=== PATIENT | male | born 2000 | race Caucasian/White ===

== ENCOUNTER 2019-04-15 01:51 | Emergency (ER) | payer BC ==
[~2019-04-15] VITALS: Ht 182.9 cm; Wt 85.6 kg
[~2019-04-15 01:51] MED LIST: ALBU8.5H8; FLUT100D; IBUP-1542 PO
[2019-04-15 01:54] VITALS: Ht 182.9 cm; Wt 85.6 kg
[2019-04-15] MEDS ORDERED: ONDA4TAB14 PO (04:11)
--- NOTE | 2019-04-15 04:18 | ERD ---
ER Documentation Chief Complaint Chief Complaint abdominal pain/vomiting/diarrhea x 2 days HPI This is a 18-year-old male with history of asthma presents to the ED complaining of diffuse abdominal cramping, nausea, vomiting, diarrhea x2 days. Patient states symptoms started after eating a burger. He reports over 15 episodes of loose stools per day, nonbloody. He also reports the episodes of nonbilious, nonbloody emesis. He has been able to tolerate Pedialyte at home. He denies any fevers, urinary symptoms, shortness of breath, chest pain. He denies any recent antibiotics or recent travel. No other sick contacts. ROS All systems reviewed and are negative except as per history of present illness. Medications Home Meds Active Scripts Ondansetron (Ondansetron Odt) 4 Mg Tab.rapdis, 4 MG PO Q6H PRN for NAUSEA AND/OR VOMITING, #10 TAB Prov:STEPHON GEORGE PA-C 04/15/19 Ibuprofen* (Motrin*) 600 Mg Tab, 600 MG PO Q6, #30 TAB Prov:RIZWAN COOK PA-C 09/16/16 Reported Medications Fluticasone Propionate (Flovent Diskus) 100 Mcg Disk.w.dev 03/09/13 Albuterol Sulfate* (Proair HFA*) 8.5 Gm Hfa.aer.ad 04/11/10 Allergies Allergies: Coded Allergies: No Known Allergies (Verified Allergy, Mild, 09/16/16) PMhx/Soc Medical and Surgical Hx: pt denies Medical Hx, pt denies Surgical Hx History of Surgery: No Anesthesia Reaction: No Hx Neurological Disorder: No Hx Respiratory Disorders: Yes (asthma) Hx Cardiac Disorders: No Hx Psychiatric Problems: No Hx Miscellaneous Medical Probl: No Hx Alcohol Use: No Hx Substance Use: No Hx Tobacco Use: No Smoking Status: Never smoker Physical Exam Vitals Vital Signs Date Temp Pulse Resp B/P (MAP) Pulse Ox O2 O2 Flow FiO2 Time Delivery Rate 04/15/19 97.3 79 18 131/86 98 01:54 (101) Physical Exam Const: No acute distress Head: Atraumatic Eyes: Normal Conjunctiva ENT: Normal External Ears, Nose and Mouth. Neck: Full range of motion. No meningismus. Resp: Clear to auscultation bilaterally Cardio: Regular rate and rhythm, no murmurs Abd: Soft, non tender, non distended. + Hyperactive bowel sounds. Negative McBurney's. Negative Alexander's. Skin: No petechiae or rashes Back: No midline or flank tenderness Ext: No cyanosis, or edema Neur: Awake and alert Psych: Normal Mood and Affect Results 24 hrs Laboratory Tests Test 04/15/19 03:52 White Blood Count Pending Red Blood Count Pending Hemoglobin Pending Hematocrit Pending Mean Corpuscular Volume Pending Mean Corpuscular Hemoglobin Pending Mean Corpuscular Hemoglobin Concent Pending Red Cell Distribution Width Pending Platelet Count Pending Mean Platelet Volume Pending Procedures/[facility] LABS & DIAGNOSTIC IMAGING: CBC: no e/o of systemic infection or severe anemia BMP: no e/o severe acidosis, alkalosis, renal failure, diabetic ketoacidosis MEDICAL DECISION MAKING: This is a 18-year-old male presents with abdominal cramping, nausea, vomiting, diarrhea. His vital signs are stable here. No fever. Abdominal exam is benign. His work-up shows no evidence of severe infection or dehydration. I offered IV fluids patient refused. Symptoms are likely viral in etiology. I do not think he needs antibiotics at this time. History and recommend constant with devices, pancreatitis, cholecystitis or any other emergent abdominal pathology. He was given Rx Zofran and DC'd home with dietary modifications for the next 1 week. He was told to see his regular doctor sometime this week, ot [facility] return here for any new or worsening symptoms. PRESCRIPTIONS: Zofran SPECIALIST FOLLOW UP RECOMMENDED: None Patient has been advised to follow up with primary care in 1-2 days. Departure Diagnosis: Primary Impression: Gastroenteritis Condition: Stable Patient Instructions: Gastroenteritis, Viral (6Y-Adult) Additional Instructions: Keep yourself hyrated, keep to a bland diet and advance as tolerated. Avoid any fast foods or eating out for the next 1 week. Call your primary care doctor TOMORROW for an appointment during the next 2-4 days and bring all the information and medications prescribed. If the symptoms get worse and your provider is unavailable, return to the Emergency Department immediately. STEPHON GEORGE PA-C April 15, 2019 04:18
[2019-04-15 04:59] VITALS: BP 128/76; PULSE 78; RESP 16
== END 2019-04-15 04:59 | disposition home or self-care (01) ==
LOC: FTE 01:51
DX: K52.9 Noninfective gastroenteritis and colitis, unspecified (principal); J45.909 Unspecified asthma, uncomplicated
CPT/HCPCS: 36415; 80053; 85025; Z7502; 99283